=== PATIENT | male | born 1965 | race Caucasian/White ===

== ENCOUNTER 2020-08-15 05:44 | Emergency (ER) | payer BC, OTHER ==
[~2020-08-15] VITALS: Ht 185.4 cm; Wt 136.1 kg
[2020-08-15 05:54] VITALS: BP 126/93
[2020-08-15] MEDS ORDERED: LIDOCAINE 1% HCL (LOCAL ANESTH.) INJ 20ML MDV IJ ONE (07:45)
[2020-08-15] MEDS ORDERED: TETANUS-DIPTH-ACEL PERTUSSIS 0.5ML SYR Tdap IM ONE (08:15)
== END 2020-08-15 08:30 | disposition home or self-care (01) ==
LOC: ER 05:44
DX: S61.213A Laceration without foreign body of left middle finger without damage to nail, initial encounter (principal); F41.9 Anxiety disorder, unspecified; G89.29 Other chronic pain; M54.5 Low back pain; F17.210 Nicotine dependence, cigarettes, uncomplicated; Z88.8 Allergy status to other drugs, medicaments and biological substances; W26.8XXA Contact with other sharp object(s), not elsewhere classified, initial encounter; Y93.89 Activity, other specified; Y92.89 Other specified places as the place of occurrence of the external cause; Y99.8 Other external cause status
CPT/HCPCS: 12002; 73140; 90471; 90715; 99283; J2001